=== PATIENT | female | born 1995 | race Two or more races ===

== ENCOUNTER 2022-08-08 12:24 | Emergency (ER) | payer OTHER ==
[~2022-08-08] VITALS: Ht 154.9 cm; Wt 47.6 kg
== END 2022-08-08 18:42 | disposition home or self-care (01) ==
LOC: ER 12:24
DX: J10.1 Influenza due to other identified influenza virus with other respiratory manifestations (principal); R11.10 Vomiting, unspecified; Z20.822 Contact with and (suspected) exposure to COVID-19